=== PATIENT | female | born 1985 | race Caucasian/White ===

== ENCOUNTER 2019-06-07 18:20 | Emergency (ER) | payer SELFPAY ==
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
[2019-06-07] MEDS ORDERED: ceFAZolin SODIUM 2 GM in SODIUM CHLORIDE 0.9% 100ML 100 ML IVPB ONE (18:50)
[2019-06-07] MEDS ORDERED: TETANUS,DIPHTHERIA,PERTUSSIS 1 EA SYG IM ONE (18:51)
[2019-06-07] MEDS ORDERED: ceFAZolin SODIUM 1 GM VIAL ONE (18:51)
[2019-06-07] MEDS ORDERED: SODIUM CHLORIDE 0.9% 100ML 100 ML IVPB ONE (18:51)
[2019-06-07] MEDS ORDERED: SODIUM CHLORIDE 0.9% 1000ML 1,000 ML ONE (18:55)
[2019-06-07] MEDS ORDERED: SODIUM CHLORIDE 0.9% 1000ML 1,000 ML IVS ONE ×2 (18:55)
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
--- NOTE | 2019-06-07 19:15 | CT ---
PROCEDURE: Head CLINICAL HISTORY: 22 years Female [employer]JOR TRAUMA COMPARISON: None. TECHNIQUE: Contiguous axial CT images obtained through the brain without IV contrast. This exam was performed according to our department optimization program which includes automated exposure control, adjustment of the mA and/or kv according to patient size and/or use of iterative reconstruction technique. FINDINGS: The ventricles and sulci are within normal limits for the patient's age. Patient is intubated. Fracture extends through the lateral wall of the left orbit and the adjacent wing of the sphenoid with fracture extending along the frontal calvarium. There is a fracture also extending through the mastoid air cells and mastoid bone on the left which extends cephalad to the posterior temporal and parietal calvarium. The fracture is significantly comminuted toward the vertex. There appears to be separation along the coronal suture and fracture along the right greater wing of the sphenoid and temporal calvarium extending over the frontal region to the vertex. Small amount of pneumocephalus is noted bilaterally. No evidence of fluid in the middle ears. Fluid in the sphenoid sinuses with fracture extending through the posterior cain of the sphenoid sinus and through the carotid canal on the right. Fractures extend along the lateral wall of the sphenoid on the left. There is extra-axial hemorrhage bilaterally which may be either epidural or subdural extending along both the left and right convexities. Over the left convexity measures approximately 3 mm. Over the right convexity measures 4 mm. Small amount of extra axial hemorrhage also present at the vertex. There is subarachnoid hemorrhage diffusely over the left convexity with some sulcal effacement. Small amount of subarachnoid hemorrhage also present over the right convexity. Ventricles appear small. IMPRESSION: Extensive calvarial fractures bilaterally involving the left greater sphenoid wing temporal frontal and parietal calvarium, the right temporal and frontal calvarium with separation of the coronal sutures bilaterally Pneumocephalus and bilateral extra-axial hemorrhage which may be subdural epidural or a combination of these Subarachnoid hemorrhage bilaterally left greater than right with underlying sulcal effacement and small amount of edema Fractures extending through the posterior cain of the sphenoid sinuses and lateral wall of the sphenoid on the left as well as the left orbital wall. Fracture extends through the carotid canal on the right. CTA can be used to exclude injury to the carotid artery. Motion artifact limits evaluation. Dr. Orosco was called and notified of the findings at 7:12 PM central time. Electronically signed by: Sarah Rocha MD 06/07/2019 7:13 PM CDT
[2019-06-07] MEDS ORDERED: LACTATED RINGERS 1,000 ML ONE (19:20)
[2019-06-07 20:16] VITALS: O2SAT 98
[2019-06-07 20:27] VITALS: BP 98/61
[2019-06-07 20:33] VITALS: TEMP 96.2
== END 2019-06-07 19:28 | disposition short-term general hospital (02) ==
LOC: ER 18:20 → EDBD 18:20 → ER 19:28
DX: S06.6X1A Traumatic subarachnoid hemorrhage with loss of consciousness of 30 minutes or less, initial encounter (principal); S32.9XXA Fracture of unspecified parts of lumbosacral spine and pelvis, initial encounter for closed fracture; S01.01XA Laceration without foreign body of scalp, initial encounter; V48.6XXA Car passenger injured in noncollision transport accident in traffic accident, initial encounter; Y92.410 Unspecified street and highway as the place of occurrence of the external cause
CPT/HCPCS: 70450; 71045; 71250; 72125; 74176; 80053; 80307; 80320; 83605; 83690; 84484; 84703; 85025; 94770; J0690; J7030; J7050; J7120